=== PATIENT | female | born 1955 | race Caucasian/White ===

== ENCOUNTER 2019-05-06 12:43 | Outpatient (CLI) | payer OTHER, SELFPAY ==
--- NOTE | 2019-05-06 12:55 | XR_ITS ---
WS: [id number] Mandible 4 view. HISTORY: Trauma 1 month ago. Left ear pain. COMPARISON: None. No fracture or dislocation is apparent. Bones of the mandible are symmetric bilaterally. No callus fo rmation or healing fracture. XR/XR mandible min 4V [id number] IMPRESSION: Negative mandible radiographs. For further evaluation consider CT evaluation of the facial bones.
== END 2019-05-06 12:44 | disposition home or self-care (01) ==
PROVIDERS: Family Provider Family Medicine; PCP Family Medicine; Visit Provider Family Medicine
DX: M26.629 Arthralgia of temporomandibular joint, unspecified side (principal)
CPT/HCPCS: 70110

== ENCOUNTER 2020-03-17 14:53 | Outpatient (CLI) | payer OTHER, SELFPAY ==
--- NOTE | 2020-03-17 14:59 | MM_ITS ---
WS: [id number] BILATERAL DIGITAL SCREENING MAMMOGRAM WITH CAD CLINICAL INFORMATION: SCREENING HISTORY: Screening mammogram. No current complaints. COMPARISON: None. TECHNIQUE: Bilateral CC and MLO. FINDINGS: The breast are composed of extremely dense tissue, which can limit the detection of small underlying mass lesions. No suspicious focal mass, asymmetry, calcifications, or architectural distortion. No ev idence of malignancy. A few punctate calcifications. MM/[place] [id number] IMPRESSION: BI-RADS: 2-Benign FOLLOW UP: 1 Year Follow-up Recommend return to annual screening mammography.
== END 2020-03-17 14:54 | disposition home or self-care (01) ==
LOC: RADSHAW 14:57
PROVIDERS: PCP Family Medicine; Visit Provider Family Medicine
DX: Z12.31 Encounter for screening mammogram for malignant neoplasm of breast (principal)
CPT/HCPCS: 77067

== ENCOUNTER 2020-09-07 17:23 | Emergency (ER) | payer OTHER, SELFPAY ==
[2020-09-07 18:09] VITALS: BP 152/89; PULSE 60; RESP 19; TEMP 37.2; O2SAT 95; BMI 32.9
--- NOTE | 2020-09-07 20:35 | ECG_ITS ---
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
== END 2020-09-08 00:09 | disposition left against medical advice (07) ==
PROVIDERS: Emergency Provider Family Medicine; PCP Family Medicine
DX: Z53.21 Procedure and treatment not carried out due to patient leaving prior to being seen by health care provider (principal)
CPT/HCPCS: 93005

== ENCOUNTER 2020-11-24 06:38 | Outpatient (CLI) | payer OTHER, SELFPAY ==
--- NOTE | 2020-11-24 | US_ITS ---
WS: [id number] ULTRASOUND ABDOMEN LIMITED CLINICAL INFORMATION: RUQ PAIN COMPARISON: None. FINDINGS: Liver Size: Normal. Craniocaudal length: 15.5 cm. Echogenicity: Normal. Surface nodularity: None. Mass (size and location): None. Bile ducts Intrahepatic ducts: Normal. Common bile duct diameter: 0.3 cm. Gallbladder Normal. Gallstones: None. Gallbladder sludge: None. Gallbladder wall thickening: None. Pericholecystic fluid: None. Sonographic Carrillo sign: Absent. Pancreas Normal as visualized. Right kidney: Normal. Hydronephrosis: None. Size: 11.2 cm x 4.8 cm x 4.3 cm. Abdominal aorta and IVC Visualized portions are normal. Ascites: None. US/US abdomen limited [id number] IMPRESSION: Normal abdominal ultrasound
== END 2020-11-24 06:39 | disposition home or self-care (01) ==
PROVIDERS: PCP Family Medicine; Visit Provider Family Medicine
DX: R10.11 Right upper quadrant pain (principal)
CPT/HCPCS: 76705

== ENCOUNTER 2021-08-03 11:31 | Outpatient (CLI) | payer OTHER, SELFPAY ==
--- NOTE | 2021-08-03 11:39 | XR_ITS ---
WS: [id number] XR lumbar spine 2-3V* [id number] REASON FOR EXAM: LOW BACK PAIN FINDINGS: Mild rotatory scoliosis convex left. Minimal superior endplate compression deformities L1-L4. There is mild narrowing of the intervertebral disc spaces throughout the lumbar spine. No significant spondylolisthesis. No spondylolysis is identified. There appears to be significant hypertrophic degenerative arthropathy in the facet joints at L5-S1. XR/XR lumbar spine 2-3V* [id number] IMPRESSION: Significant appearing degenerative arthropathy in the L5-S1 facet joints.
== END 2021-08-03 11:32 | disposition home or self-care (01) ==
LOC: RAD 11:33
PROVIDERS: PCP Family Medicine; Visit Provider Clinical Nurse Specialist Adult Health
DX: M54.50 Low back pain, unspecified (principal); M12.88 Other specific arthropathies, not elsewhere classified, other specified site
CPT/HCPCS: 72100; 80053; 80061; 85025

== ENCOUNTER 2021-11-19 08:27 | Day surgery (SDC) | payer OTHER, SELFPAY ==
[2021-11-18 09:01] VITALS: BMI 34.7
[2021-11-19 09:14] VITALS: BP 122/87; PULSE 88; RESP 18; TEMP 36.6; O2SAT 93
[2021-11-19] MEDS: sodium chloride 0.9% 1,000 ML 30 ML IV ×2 (09:22→11:25)
--- NOTE | 2021-11-19 10:19 | P.HP_ITS ---
Same Day Surgery H&P Indication for Procedure/HPI DATE OF PROCEDURE: November 19, 2021 CHIEF COMPLAINT/INDICATIONFOR SURGICAL PROCEDURE: Acid reflux PREOP DIAGNOSIS: Retrosternal pain PLANNED PROCEDURE: Operation Date: 11/19/21 10:15 Proposed Procedures p EGD 81451,K21.9(Not Applicable) - Kristian Smith MD 10/06/2021This is a pleasant 66 years old female patient with history of palpitations and has been evaluated also for back pain.? She reports that she has been having retrosternal dull aching pain particularly with food and spreads across her chest.? She has been having PPI therapy for more than 6 months and getting Carafate as well but her symptoms are not improving much.? She is referred to me for further evaluation and potential management. 11/19/2021 Patient comes today for diagnostic EGD ROS All systems have been reviewed negative except as for the above or per problem list. Medications/Allergies* Home Medications Medication Instructions Recorded Confirmed Type sucralfate 1 gram tablet 1 g PO QID PRN Heartburn 08/06/21 11/18/21 History Allergies/Adverse Reactions Allergy/AdvReac Type Severity Reaction Status Date / Time Sulfa (Sulfonamide Allergy ALGY-Rash Verified 11/19/21 10:20 Antibiotics) Current Medications: Generic Name Dose Route Start Last Admin Trade Name Freq PRN Reason Stop Dose Admin Sodium Chloride 1,000 mls @ 30 mls/hr 11/19/21 08:45 11/19/21 09:22 Sodium Chloride 0.9% IV 11/20/21 08:44 30 mls/hr .Q24H LOLIS Administration Pertinent History/Comorbid Conditions* Family History (Updated 09/01/21 @ 10:56 by Viviane Campo LPN) CAD (coronary artery disease) Family history of premature coronary artery disease Hypertension Denies family history of Diabetes Lung disease Stroke Social History Smoking and tobacco status: former smoker Pertinent Exam Findings alert, oriented x 3, regular rate & rhythm and procedure specific exam findings (Abdominal exam nontender nondistended soft) Recommendations Surgery/Procedure today (EGD with possible biopsy) Coding Level of Care Code Acute Relay Shop Tester for Chg Fwkayla
--- NOTE | 2021-11-19 11:03 | ANES.PREANE2 ---
Pre-Anesthetic Assessment Height/Weight: Height 1.57 m Weight 86.183 kg Temp Pulse Resp BP Pulse Ox O2 Del Method 97.8 F 88 18 122/87 93 11/19/21 09:14 11/19/21 09:14 11/19/21 09:14 11/19/21 09:14 11/19/21 09:14 11/19/21 09:14 Preop Diagnosis: Retrosternal pain Operation Date: 11/19/21 10:15 Proposed Procedures p EGD 84745,K21.9(Not Applicable) - Kristian Smith MD Familial anesthetic complications: None Was Beta Theodora taken within 24 hours: Yes Was Clonidine taken within 24 hours: N/A Last intake: Intake Last Liquid Date 11/18/21 Last Liquid Time 17:00 Last Solid Date 11/18/21 Last Solid Time 17:00 Social No alcohol and No tobacco Former smoker Airway Mallampati: Class II Dentition: full CV/HEM Hypertension GI Gastroesophageal Reflux Disease Anesthetic Plan ASA status: 2 Anesthesia: MAC Risk of > 500 ml blood loss (7ml/kg in children): No Medications/Allergies Home Medications Medication Instructions Recorded Confirmed Last Taken Type sucralfate 1 gram tablet 1 g PO QID PRN Heartburn 08/06/21 11/18/21 11/18/21 History carvedilol 12.5 mg tablet 12.5 mg PO BID #60 tabs 09/27/21 11/18/21 11/18/21 Rx omeprazole 40 mg capsule,delayed 40 mg PO DAILY #30 caps 09/27/21 11/18/21 11/18/21 Rx release paroxetine HCl 10 mg tablet 10 mg PO DAILY #90 tabs 09/27/21 11/18/21 11/18/21 Rx Allergies Allergy/AdvReac Type Severity Reaction Status Date / Time Sulfa (Sulfonamide Allergy ALGY-Rash Verified 11/19/21 10:20 Antibiotics) Current Medications Generic Name Dose Route Start Last Admin Trade Name Freq PRN Reason Stop Dose Admin Sodium Chloride 1,000 mls @ 30 mls/hr 11/19/21 08:45 11/19/21 09:22 Sodium Chloride 0.9% IV 11/20/21 08:44 30 mls/hr .Q24H LOLIS Administration PFSH Anesthesia Family History Other CAD (coronary artery disease) Family history of premature coronary artery disease Hypertension Denies family history of Diabetes Lung disease Stroke Social History Smoking and tobacco status: former smoker Data Anesthesia Cardiac Studies: No Data to Display
[2021-11-19 11:46] VITALS: BP 132/90; PULSE 82; RESP 16; TEMP 36.6; O2SAT 95
[2021-11-19 11:51] VITALS: BP 152/83; PULSE 94; RESP 18; O2SAT 97
[2021-11-19 12:01] VITALS: BP 133/87; PULSE 68; RESP 18; O2SAT 96
--- NOTE | 2021-11-19 13:32 | ANE.PACU2 ---
Inpatient post-anesthesia follow up: Airway intact: Yes Vital signs: Temperature 97.9 F Pulse Rate 68 Respiratory Rate 18 Blood Pressure 133/87 Pulse Oximetry 96 Oxygen Delivery Me thod Room Air Oxygen Flow Rate 3 Fraction of Inspir ed Oxygen Hydration adequate: Yes Nausea and vomiting: No Pain level: 1 Mental status: Baseline
== END 2021-11-19 12:18 | disposition home or self-care (01) ==
PROVIDERS: PCP Family Medicine; Visit Provider Surgery
PROC: 0DJ08ZZ Inspection of Upper Intestinal Tract, Via Natural or Artificial Opening Endoscopic (ICD-10-PCS; CPT 43235; principal; 2021-11-19 10:15)
DX: K21.9 Gastro-esophageal reflux disease without esophagitis (principal); Z79.899 Other long term (current) drug therapy; Z87.891 Personal history of nicotine dependence; I10 Essential (primary) hypertension; K29.50 Unspecified chronic gastritis without bleeding; B96.81 Helicobacter pylori [H. pylori] as the cause of diseases classified elsewhere; K63.5 Polyp of colon
CPT/HCPCS: 43239; 88305; J2704; J7030

== ENCOUNTER → 2022-03-17 08:46 | Outpatient (BNVA) | payer MEDICARE, OTHER, SELFPAY | PROVIDERS: PCP Family Medicine; Visit Provider Anesthesiology Pain Medicine | DX: M54.9 Dorsalgia, unspecified (principal) | CPT/HCPCS: 99212; 99213 ==

== ENCOUNTER 2022-05-31 09:07 | Outpatient (CLI) | payer MEDICARE, OTHER, SELFPAY ==
--- NOTE | 2022-05-31 09:19 | XR_ITS ---
WS: [id number] Exam: XR chest 2V* [id number] Date/Time of Exam: 05/31/2022 9:29 AM Reason For Exam: Chest pain, chronic cough No priors. Findings: The lungs are clear and fully expanded. Costophrenic angles are sharp. No infiltrates. Bronchovascula r relief appears normal. Cardiac silhouette is unremarkable. Bony elements are intact. XR/XR chest 2V* [id number] IMPRESSION: Unremarkable chest radiograph.
== END 2022-05-31 09:08 | disposition home or self-care (01) ==
PROVIDERS: PCP Family Medicine; Visit Provider Family Medicine
DX: R05.9 Cough, unspecified (principal); R07.2 Precordial pain; E53.8 Deficiency of other specified B group vitamins; Z51.81 Encounter for therapeutic drug level monitoring; E78.5 Hyperlipidemia, unspecified; Z13.220 Encounter for screening for lipoid disorders; E55.9 Vitamin D deficiency, unspecified
CPT/HCPCS: 71046; 80053; 80061; 82306; 82607; 83735; 85025

== ENCOUNTER 2023-01-19 10:42 | Outpatient (CLI) | payer MEDICARE, OTHER, SELFPAY ==
--- NOTE | 2023-01-19 11:00 | MM_ITS ---
WS: [id number] VIEWS: MLO and CC views both breasts. 3D digital tomosynthesis is also included in this exam. Comparison made with prior exam of 03/17/2020. Findings: There was no sign of mass, architectural distortion or suspicious calcification in either breast. The re are scattered areas of fibroglandular density Impression: MM/[place] [id number] BI-RADS: 2-Benign FOLLOW-UP: 1 Year Follow-up This mammogram was also analyzed by the Computer Aided Detection System R2 Imag e Manager Endoscopy.
== END 2023-01-19 10:43 | disposition home or self-care (01) ==
LOC: MOBLMAM 10:49
PROVIDERS: PCP Family Medicine; Visit Provider Family Medicine
DX: Z12.31 Encounter for screening mammogram for malignant neoplasm of breast (principal)
CPT/HCPCS: 77063; 77067

== ENCOUNTER → 2023-05-08 10:27 | Outpatient (BNVA) | payer MEDICARE, OTHER, SELFPAY | PROVIDERS: PCP Family Medicine; Visit Provider Anesthesiology Pain Medicine | DX: M54.16 Radiculopathy, lumbar region (principal) | CPT/HCPCS: 99214 ==

== ENCOUNTER 2023-06-02 08:26 | Outpatient (CLI) | payer MEDICARE, SELFPAY ==
--- NOTE | 2023-06-02 08:45 | MR_ITS ---
WS: [id number] MRI LUMBAR SPINE NONCONTRAST TECHNIQUE: Sagittal T1, T2 and STIR imaging. Axial T1 and T2 imaging. CLINICAL INFORMATION: M54.16 - Radiculopathy, lumbar region COMPARISON: None. FINDINGS: Mild lumbar curve. Mild compression superior endplate L3 vertebral body with anterior wedging. Minima l retropulsion the posterior superior cortex with slight effacement of the ventral thecal sac. Narrow ing of the subarticular recess bilaterally. L3 compression is new since 08/03/2021. Visualized fractur e cleft in the L2-3 superior endplate. Tiny amount of edema. 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 L1-L2: Slight retrolisthesis. Mild annular bulging. Mild facet arthropathy. Spinal canal and foramen are patent. L2-L3: Mild disc bulging with a LEFT proximal foraminal protrusion. Mild to moderate LEFT foraminal n arrowing. Moderate central canal stenosis with impingement of the LEFT greater than RIGHT subarticula r recess. RIGHT foramen is patent. Moderate facet arthropathy. L3-L4: Mild annular bulging. Moderate chronic central canal stenosis. Moderate facet arthropathy. Mil d bilateral foraminal narrowing. L4-L5: Slight anterolisthesis L4 on L5. Mild disc bulging impinges the traversing RIGHT L5 nerve root in the subarticular recess. Mild RIGHT and no significant LEFT foraminal narrowing. Moderate facet a rthropathy. L5-S1: No significant disc bulging. Moderate facet arthropathy. Spinal canal and foramen are patent. Visualized pelvic bony structures: Normal. Paravertebral soft tissues: Normal. Mild central canal stenosis in the cervical spine post hole digger imaging with small disc protrusions at C4-C6. Central disc protrusion at T6-T7 with mild central canal stenosis. IMPRESSION: 1. 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 2. Subacute L3 compression fracture superior endplate with loss of approximately 40% vertebral body height. Mild retropulsion of the posterior super cortex with slight effacement of the ventral thecal sac. Moderate central canal stenosis at this level in part due to facet arthropathy and short pedicle s. 3. Moderate central canal stenosis L2-3 with narrowing of the LEFT greater than RIGHT subarticular r ecess. LEFT foraminal protrusion at this level with mild to moderate LEFT foraminal narrowing. 4. Moderate central canal stenosis L3-4. 5. Impingement of RIGHT L4-5 subarticular recess and traversing RIGHT L5 nerve root. Mild RIGHT L4-5 foraminal narrowing. 6. Disc protrusions in the cervical and thoracic spine described above with slight indentation on th e cervical and thoracic cord. Recommend further evaluation with cervical and thoracic spine MRI.
== END 2023-06-02 08:27 | disposition home or self-care (01) ==
LOC: RAD 08:27
PROVIDERS: PCP Family Medicine; Visit Provider Anesthesiology Pain Medicine
DX: M54.16 Radiculopathy, lumbar region (principal); M48.56XD Collapsed vertebra, not elsewhere classified, lumbar region, subsequent encounter for fracture with routine healing; M48.061 Spinal stenosis, lumbar region without neurogenic claudication; X58.XXXD Exposure to other specified factors, subsequent encounter
CPT/HCPCS: 72148

== ENCOUNTER → 2023-06-15 15:15 | Outpatient (BNVA) | payer MEDICARE, SELFPAY | PROVIDERS: PCP Family Medicine; Visit Provider Orthopaedic Surgery | DX: M54.9 Dorsalgia, unspecified (principal) | CPT/HCPCS: 72110; 99204 ==

== ENCOUNTER → 2023-08-08 10:36 | Outpatient (BNVA) | payer MEDICARE, OTHER, SELFPAY | PROVIDERS: PCP Family Medicine; Visit Provider Orthopaedic Surgery | DX: M54.9 Dorsalgia, unspecified (principal); M47.816 Spondylosis without myelopathy or radiculopathy, lumbar region | CPT/HCPCS: 72100; 99214 ==

== ENCOUNTER → 2024-02-13 09:12 | Outpatient (BNVA) | payer MEDICARE, OTHER, SELFPAY | PROVIDERS: PCP Family Medicine; Visit Provider Anesthesiology Pain Medicine | DX: M54.9 Dorsalgia, unspecified (principal); M54.16 Radiculopathy, lumbar region | CPT/HCPCS: 99214 ==

== ENCOUNTER → 2024-02-20 09:08 | Outpatient (BNVA) | payer MEDICARE, OTHER, SELFPAY | PROVIDERS: PCP Family Medicine; Visit Provider Anesthesiology Pain Medicine | DX: M54.16 Radiculopathy, lumbar region; M47.816 Spondylosis without myelopathy or radiculopathy, lumbar region | CPT/HCPCS: 99214 ==

== ENCOUNTER → 2024-02-27 12:17 | Outpatient (BNVA) | payer MEDICARE, OTHER, SELFPAY | PROVIDERS: PCP Family Medicine; Visit Provider Anesthesiology Pain Medicine | DX: M47.816 Spondylosis without myelopathy or radiculopathy, lumbar region (principal); M54.9 Dorsalgia, unspecified | CPT/HCPCS: 64635; 64636; 77002; J1010 ==

== ENCOUNTER → 2024-03-12 09:29 | Outpatient (BNVA) | payer MEDICARE, OTHER, SELFPAY | PROVIDERS: PCP Family Medicine; Visit Provider Anesthesiology Pain Medicine | DX: M54.16 Radiculopathy, lumbar region (principal); M47.816 Spondylosis without myelopathy or radiculopathy, lumbar region | CPT/HCPCS: 99214 ==

== ENCOUNTER → 2024-06-04 11:22 | Outpatient (BNVA) | payer MEDICARE, OTHER, SELFPAY | PROVIDERS: PCP Family Medicine; Visit Provider Family Medicine | DX: Z00.00 Encounter for general adult medical examination without abnormal findings (principal); E55.9 Vitamin D deficiency, unspecified; R53.81 Other malaise; R53.83 Other fatigue; R10.9 Unspecified abdominal pain; Z13.6 Encounter for screening for cardiovascular disorders; Z51.81 Encounter for therapeutic drug level monitoring | CPT/HCPCS: 80053; 80061; 82306; 82607; 83550; 84439; 84443; 85025; 86141 ==

== ENCOUNTER → 2024-06-10 09:51 | Outpatient (BNVA) | payer MEDICARE, OTHER, SELFPAY | PROVIDERS: PCP Family Medicine; Visit Provider Anesthesiology Pain Medicine | DX: M54.9 Dorsalgia, unspecified (principal); M54.16 Radiculopathy, lumbar region; M47.816 Spondylosis without myelopathy or radiculopathy, lumbar region | CPT/HCPCS: 99214 ==

== ENCOUNTER 2024-06-11 08:35 | Outpatient (CLI) | payer MEDICARE, OTHER, SELFPAY ==
--- NOTE | 2024-06-11 | ECG_ITS ---
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 Interpretive Statements Lung unchanged pre/post procedure; Intraprocedure shortess of breath; Symptoms resoled by discharge PROCEDURE: At the baseline, the EKG revealed sinus bradycardia with normal ST Ts.. The baseline heart was 50 bpm with a blood pressue of 103/74 mm of Hg Lexiscan was infused over a period of 20 seconds. A total of 0.4 milligrams of Lexiscan was infused. The stress phase was continued for a total of 5 minutes. Heart rate at the end of the stress phase was 74 bpm with a blood pressure 109/67 mm of Hg. The EKG at the peak infusion revealed no significant changes. Sestamibi was injected 20 seconds after the Lexiscan infusion. Heart rate at the end of the recovery phase was 70 bpm with a blood pressure of 109/67 mm of Hg. CONCLUSION: 1. No significant EKG changes with the LexiScan infusion 2. No LexiScan induced chest pain or cardiac arrhythmia 3. Normal blood pressure and heart rate response 4. Sestamibi/sestamibi perfusion scan pending; see separate report. Electronically Signed On 06-17-2024 14:27:23 CDT by Maria E Gale M.D. [id number]
[2024-06-11 08:56] VITALS: BMI 30.2
--- NOTE | 2024-06-11 08:58 | NMCV_ITS ---
NM obdulia perf SPECT r/s* [id number] Ivette Orellana Age: 68 Gender: F : 1955 Exam Date: 06/11/2024 10:01 Ordering Phys: Fish Morgan MD Technologist: DANY Reid Exam Location: [facility] Indications: CP STRESS TEST Please see separate stress test report in [facility] for full findings IMAGE PROTOCOL Rest/Stress 1 Radiopharmaceutical Dose (mCi) Administration Site Administered by Rest: Tc-99m 10.7 IV Judith Marcia, GRINDING OPERATOR Sestamibi Stress:Tc-99m 32.3 IV Judith Marcia, GRINDING OPERATOR Sestamibi Rest: 11-Jun-2024 [facility] 630 Stress: 11-Jun-2024 [facility] 630 SPECT RESULTS Technical Quality: Good Raw Data Analysis: Normal Image Corrections: No attenuation or motion correction applied Summed Stress Score: 0 Summed Rest Score: 12 Summed Difference Score: 0 PERFUSION FINDINGS Fairly uniform myocardial tracer uptake. Attenuation artifacts were noted with the rest imaging. FUNCTIONAL RESULTS (calculated via Gated SPECT) Stress Image LV EF (%): 83 Stress EDV (mL):60 TID: 1.03 Stress ESV (mL):10 FUNCTIONAL FINDINGS: Segmental wall motion analysis revealing no gross wall motion abnormalities IMPRESSIONS 1. No significant Perfusion normalities 2. Normal LV ejection fraction of 83%. 3. LV wall motion analysis revealing no gross wall motion abnormalities. 4. Normal LV volume Low probability for coronary ischemia, based on the above findings Dr Maria E Gale MD [facility] (Electronically Signed) Final Date: 11 Jun 2024 21:45 S
[2024-06-11] MEDS: regadenoson 0.4 Mg/5 ml Syringe IVP (10:19)
[2024-06-11 10:39] VITALS: BP 109/67; PULSE 67
== END 2024-06-11 08:36 | disposition home or self-care (01) ==
LOC: CDL 08:36
PROVIDERS: PCP Family Medicine; Visit Provider Family Medicine
DX: R07.9 Chest pain, unspecified (principal)
CPT/HCPCS: 36415; 78452; 93017; 96374; A9500; J2785

== ENCOUNTER 2024-06-13 14:04 | Outpatient (CLI) | payer MEDICARE, OTHER, SELFPAY ==
[2024-06-13] MEDS: iohexol 350 mg/mL 500 mL Btl (per mL) PO (14:25)
[2024-06-13] MEDS: iohexol 350 mg/mL 500 mL Btl (per mL) IV (15:27)
--- NOTE | 2024-06-13 15:30 | CT_ITS ---
WS: [id number] CT abdomen pelvis w con* [id number] REASON FOR EXAM: Abdominal pain, early satiety IV CONTRAST ADMINISTERED: 100 mL of Omnipaque 350@3 mL/s TECHNIQUE: Oral contrast was administered. Following intravenous administration of contrast multiple thin section axial images were obtained with coronal and sagittal reconstructions. TOTAL EXAM DLP: 460.[address] scans at [facility] use at least one of these dose optimization techniques: automated exposure control; mA and/or kV adjustment per patient size (includes targeted exams where dose is matched to clinical indication); or iterative reconstruction. FINDINGS: ABDOMEN: The liver spleen and pancreas are unremarkable. There is an 8 mm low-attenuation intraluminal intraluminal mass in the descending duodenum. There is either a small duplication cysts or a small mural lipoma. Benign process. Normal pancreas. Normal adrenals and kidneys. No renal calculus, mass, or hydronephrosis. No abdominal mass or adenopathy. No additional bowel abnormality. No focal fluid collection or free fluid. Normal aorta and normal major aortic branches. PELVIS: No mass or adenopathy. No free fluid or focal fluid collection. Bone: Moderate compression deformity of L3. Mild degenerative spondylosis. Bony pelvis intact with mild osteoarthritis of the hips. CT/CT abdomen pelvis w con* [id number] IMPRESSION: Incidental duodenal abnormality. Remainder of the examination was unremarkable.
== END 2024-06-13 14:05 | disposition home or self-care (01) ==
LOC: RAD 14:05
PROVIDERS: PCP Family Medicine; Visit Provider Family Medicine
DX: R10.9 Unspecified abdominal pain (principal); R93.3 Abnormal findings on diagnostic imaging of other parts of digestive tract; M48.56XA Collapsed vertebra, not elsewhere classified, lumbar region, initial encounter for fracture; M47.9 Spondylosis, unspecified; M16.0 Bilateral primary osteoarthritis of hip
CPT/HCPCS: 74177

== ENCOUNTER → 2024-12-10 09:33 | Outpatient (BNVA) | payer MEDICARE, OTHER, SELFPAY | PROVIDERS: PCP Family Medicine; Visit Provider Anesthesiology Pain Medicine | DX: M47.816 Spondylosis without myelopathy or radiculopathy, lumbar region (principal); M54.16 Radiculopathy, lumbar region | CPT/HCPCS: 99214 ==